=== PATIENT | male | born 1995 | race Caucasian/White ===

== ENCOUNTER 2020-10-24 13:46 | Emergency (ER) | payer SELFPAY ==
[~2020-10-24] VITALS: Ht 182.9 cm; Wt 63.6 kg
[2020-10-24 13:52] VITALS: Ht 182.9 cm; Wt 63.6 kg
[2020-10-24 16:25] LABS: BASOPHILS 0.5 % (0-2); EOSINOPHILS 0.8 % (0-7); HEMATOCRIT 49.9 % (42.0-54.0); HEMOGLOBIN 16.7 g/dL (13.5-17.5); LYMPHOCYTES 31.6 % (15-50); MCH 30.3 pg (26.0-34.0); MCHC 33.5 g/dL (31.0-37.0); MCV 90.5 fL (80.0-100.0); MEAN PLATELET VOLUME 9.9 fL (7.4-10.4); MONOCYTES 7.5 % (2-11); NEUTROPHILS 59.6 % (40-80); PLATELET COUNT 202 10x3/uL (130-400); RBC 5.52 10x6/uL (4.20-6.10); WBC 5.3 10x3/uL (4.8-10.8)
[2020-10-24 17:01] LABS: CALC OSMOLALITY 280 mosm/kg (275-300); CARBON DIOXIDE 29.2 mmol/L (21.0-32.0); CHLORIDE - SERUM 104 mmol/L (98-107); GLUCOSE 82 mg/dL (74-106); POTASSIUM - SERUM 4.3 mmol/L (3.5-5.1); SODIUM 141 mmol/L (136-145); UREA NITROGEN 15 mg/dL (7-18); eGFR NON AFRICAN AMERICAN > 90 mL/min (90-120)
[2020-10-24 17:07] LABS: ALBUMIN 4.4 g/dL (3.4-5.0); ALKALINE PHOSPHATASE 77 U/L (30-120); ALT (SGPT) 23 U/L (10-68); BILIRUBIN - TOTAL 0.74 mg/dL (0.2-1.3); PROTEIN - SERUM 7.3 g/dL (6.4-8.2)
[2020-10-24 17:33] VITALS: BP 121/82
[2020-10-24] MEDS ORDERED: BENADRYL25 MG PO (19:39)
[2020-10-24] MEDS ORDERED: ULTRAM50 MG PO (19:39)
== END 2020-10-24 20:08 | disposition home or self-care (01) ==
LOC: D.ER 13:46
PROVIDERS: Family Medicine
DX: M54.2 Cervicalgia (principal); M54.9 Dorsalgia, unspecified; R20.0 Anesthesia of skin